=== PATIENT | male | born 1970 | race Hispanic/Latino ===

== ENCOUNTER 2022-01-18 12:02 | Inpatient (IN) | payer MEDICAID ==
[2022-01-18] MEDS ORDERED: SODIUM CHLORIDE 0.9% 1000 ML IV SOLN IV ONE (12:42)
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
--- NOTE | 2022-01-18 13:38 | XRay Report ---
CHEST 1 VIEW 01/18/2022 12:25 PM INDICATION / CLINICAL INFORMATION: sepsis. COMPARISON: 03/07/2013. FINDINGS: SUPPORT DEVICES: None. HEART / MEDIASTINUM: No significant abnormality. LUNGS / PLEURA: Mild opacity right base. No pneumothorax. ADDITIONAL FINDINGS: No significant additional findings. IMPRESSION: 1. Mild opacity right base worrisome for pneumonia. 2. Left lung clear. Signer Name: Houston Lopez MD Signed: 01/18/2022 1:33 PM Workstation Name: [id number]
[2022-01-18] MEDS ORDERED: VANCOMYCIN 1,250 MG in SODIUM CHLORIDE 0.9% 500 ML 500 ML IV ONE (13:43)
[2022-01-18] MEDS ORDERED: CEFEPIME/NS 1 GM/100 ML 1 GM/100 ML BAG IV ONE (13:43)
[2022-01-18 13:54] LABS: Alanine Aminotransferase 30 units/L (7-56); Albumin 3.6 g/dL (3.9-5); BUN/Creatinine Ratio 16; Blood Urea Nitrogen 21 mg/dL (9-20); Calcium 9.1 mg/dL (8.4-10.2); Hemolysis Index 124
[2022-01-18 13:55] LABS: Basophils % (Auto) 0.8 % (0.0-1.8); Eosinophils # (Auto) 0.1 K/mm3 (0.0-0.4); Eosinophils % (Auto) 2.4 % (0.0-4.3); Hematocrit 33.7 % (35.5-45.6); Hemoglobin 10.4 gm/dl (11.8-15.2); Lymphocytes # (Auto) 1.4 K/mm3 (1.2-5.4); Lymphocytes % (Auto) 30.8 % (13.4-35.0); Mean Corpuscular HGB Conc 31 % (32-34); Mean Corpuscular Volume 92 fl (84-94); Monocytes # (Auto) 0.2 K/mm3 (0.0-0.8); Monocytes % (Auto) 5.5 % (0.0-7.3); Platelet Count 267 K/mm3 (140-440); Red Blood Count 3.65 M/mm3 (3.65-5.03); Red Cell Distribution Width 17.9 % (13.2-15.2)
[2022-01-18] MEDS ORDERED: SODIUM CHLORIDE 0.9% 1000 ML 1,000 ML IV ONE ×2 (13:58→23:01)
[2022-01-18] MEDS ORDERED: DEXTROSE 50% IN WATER (25GM) 50 ML SYRINGE IV PRN (13:58)
[2022-01-18] MEDS ORDERED: INSULIN REGULAR, HUMAN 100 UNITS/1 ML IV ONE (13:58)
[2022-01-18 14:05] LABS: Chol/HDL Ratio 5.72 %; HDL Cholesterol 37 mg/dL (40-59); LDL Cholesterol,Direct TNR mg/dL (50-130)
[2022-01-18 14:07] LABS: INR 0.92 (0.87-1.13)
[2022-01-18 14:08] LABS: Partial Thromboplastin Time 27.5 Sec. (24.2-36.6)
[2022-01-18] MEDS ORDERED: D5W/0.45% NACL/KCL 20 MEQ 20 MEQ/1,000 ML BAG IV SCH ×2 (15:00→17:00)
[2022-01-18] MEDS ORDERED: INSULIN REGULAR, HUMAN 100 UNITS in SODIUM CHLORIDE 0.9% 99 ML IV SCH (15:00)
--- NOTE | 2022-01-18 16:14 | History and Physical Report ---
History of Present Illness Date of examination: 01/18/22 Date of admission: January 18, 2022 Chief complaint: Severe weakness since a.m. History of present illness: 51-year-old male who looks older than his age complains of generalized weakness and nausea. Also neck pain and chronic back pain. Patient was in physical therapy and because he felt very weak called the EMS. In the emergency room patient was hypotensive and hypothermic. Blood glucose levels were very high. Work-up for sepsis was initiated. Patient with altered sensorium. Unable to give much history. ED course warming blankets was given and IV fluid was IV insulin was started past medical history diabetes Chronic Bactrim Neck pain past surgical history unavailable social history unavailable family history unavailable Review of Systems ROS: Stated complaint: HYPERGLYCEMIA Other details as noted in HPI Constitutional: malaise, weakness. denies: fever Eyes: denies: eye discharge ENT: denies: epistaxis Respiratory: shortness of breath Cardiovascular: denies: syncope Gastrointestinal: abdominal pain, melena Genitourinary: denies: dysuria Musculoskeletal: arthralgia, myalgia Neurological: weakness Hematological/Lymphatic: denies: easy bleeding Medications and Allergies Allergies Allergy/AdvReac Type Severity Reaction Status Date / Time No Known Allergies Allergy Verified 01/18/22 13:40 Active Meds: Active Medications Dextrose (Dextrose 50% In Water (25gm) 50 Ml Syringe) 0 ml IV Q30MIN PRN; Protocol PRN Reason: Hypoglycemia Insulin Human Regular 100 (units/ Sodium Chloride) 100 mls @ 1 mls/hr IV TITR CHAU; Protocol Last Admin: 01/18/22 15:00 Dose: 8 units/hr, 8 mls/hr Potassium Chloride/Dextrose/Sod Cl (D5w/0.45% Nacl/Kcl 20 Meq) 20 meq in 1,000 mls @ 125 mls/hr IV DIRECT CHAU Sodium Chloride (Sodium Chloride 0.9% 10 Ml Flush Syringe) 10 ml IV PRN [facility] Exam - Constitutional Vitals: Temp Pulse Resp BP Pulse Ox 98.0 F 80 18 110/65 99 01/18/22 15:36 01/18/22 16:00 01/18/22 16:00 01/18/22 16:00 01/18/22 16:00 General appearance: Present: no acute distress, well-nourished - EENT Eyes: Present: PERRL ENT: hearing intact, clear oral mucosa - Neck Neck: Present: supple, normal ROM - Respiratory Respiratory effort: normal Respiratory: bilateral: CTA - Cardiovascular Heart rate: 78 Rhythm: regular Heart Sounds: Present: S1 & S2. Absent: rub, click - Extremities Extremities: pulses symmetrical, No edema Peripheral Pulses: within normal limits - Abdominal General gastrointestinal: Present: soft, non-tender, non-distended, normal bowel sounds Male genitourinary: Present: normal - Integumentary Integumentary: Present: clear, warm, dry - Musculoskeletal Musculoskeletal: generalized weakness - Psychiatric Psychiatric: other (Altered sensorium) - Neurologic Neurologic: moves all extremities, other (Altered sensorium) - Allied Health Allied health notes reviewed: nursing, social work, case management HEART Score - HEART Score History: Slightly suspicious Age: 45-65 Risk factors: 1-2 risk factors Troponin: Troponin T 0.038 ng/mL (0.00-0.029) H 01/18/22 13:08 Troponin: < normal limit - Critical Actions Critical Actions: 0-3 pts:0.9-1.7%risk of adverse cardiac event.Candidate for discharge Results - Labs CBC & Chem 7: 01/19/22 02:24 01/19/22 02:24 Labs: Laboratory Last Values WBC 4.5 K/mm3 (4.5-11.0) 01/18/22 13:08 RBC 3.65 M/mm3 (3.65-5.03) 01/18/22 13:08 Hgb 10.4 gm/dl (11.8-15.2) L 01/18/22 13:08 Hct 33.7 % (35.5-45.6) L 01/18/22 13:08 MCV 92 fl (84-94) 01/18/22 13:08 MCH 28 pg (28-32) 01/18/22 13:08 MCHC 31 % (32-34) L 01/18/22 13:08 RDW 17.9 % (13.2-15.2) H 01/18/22 13:08 Plt Count 267 K/mm3 (140-440) 01/18/22 13:08 Lymph % (Auto) 30.8 % (13.4-35.0) 01/18/22 13:08 [place] % (Auto) 5.5 % (0.0-7.3) 01/18/22 13:08 Eos % (Auto) 2.4 % (0.0-4.3) 01/18/22 13:08 Baso % (Auto) 0.8 % (0.0-1.8) 01/18/22 13:08 Lymph # (Auto) 1.4 K/mm3 (1.2-5.4) 01/18/22 13:08 [place] # (Auto) 0.2 K/mm3 (0.0-0.8) 01/18/22 13:08 Eos # (Auto) 0.1 K/mm3 (0.0-0.4) 01/18/22 13:08 Baso # (Auto) 0.0 K/mm3 (0.0-0.1) 01/18/22 13:08 Seg Neutrophils % 60.5 % (40.0-70.0) 01/18/22 13:08 Seg Neutrophils # 2.7 K/mm3 (1.8-7.7) 01/18/22 13:08 PT 13.4 Sec. (12.2-14.9) 01/18/22 13:08 INR 0.92 (0.87-1.13) 01/18/22 13:08 APTT 27.5 Sec. (24.2-36.6) 01/18/22 13:08 VBG pH 7.180 (7.320-7.420) L* 01/18/22 13:08 Sodium 123 mmol/L (137-145) L 01/18/22 13:08 Potassium 6.8 mmol/L (3.6-5.0) H* 01/18/22 13:08 Chloride 84.5 mmol/L (98-107) L 01/18/22 13:08 Carbon Dioxide 10 mmol/L (22-30) L 01/18/22 13:08 Anion Gap 35 mmol/L 01/18/22 13:08 BUN 21 mg/dL (9-20) H 01/18/22 13:08 Creatinine 1.3 mg/dL (0.8-1.3) 01/18/22 13:08 Estimated GFR 58 ml/min 01/18/22 13:08 BUN/Creatinine Ratio 16 % 01/18/22 13:08 Glucose 1028 mg/dL (75-100) H* 01/18/22 13:08 POC Glucose > 600 mg/dL (70-105) H 01/18/22 14:49 Lactic Acid 1.20 mmol/L (0.7-2.0) 01/18/22 15:31 Calcium 9.1 mg/dL (8.4-10.2) 01/18/22 13:08 Phosphorus 4.50 mg/dL (2.5-4.5) 01/18/22 14:31 Magnesium 2.50 mg/dL (1.7-2.3) H 01/18/22 13:08 Total Bilirubin 0.20 mg/dL (0.1-1.2) 01/18/22 13:08 AST 29 units/L (5-40) 01/18/22 13:08 ALT 30 units/L (7-56) 01/18/22 13:08 Alkaline Phosphatase 234 units/L (35-129) H 01/18/22 13:08 Total Creatine Kinase 154 units/L (55-170) 01/18/22 13:08 Troponin T 0.038 ng/mL (0.00-0.029) H 01/18/22 13:08 Total Protein 6.4 g/dL (6.3-8.2) 01/18/22 13:08 Albumin 3.6 g/dL (3.9-5) L 01/18/22 13:08 Albumin/Globulin Ratio 1.3 % 01/18/22 13:08 Triglycerides 595 mg/dL (2-149) H 01/18/22 13:08 Cholesterol 212 mg/dL (50-199) H 01/18/22 13:08 LDL Cholesterol Direct TNR 01/18/22 13:08 HDL Cholesterol 37 mg/dL (40-59) L 01/18/22 13:08 Cholesterol/HDL Ratio 5.72 % 01/18/22 13:08 TSH 2.900 mlU/mL (0.270-4.200) 01/18/22 13:08 Blood Type A POSITIVE 01/18/22 13:08 Antibody Screen Negative 01/18/22 13:08 Short CBC 01/18/22 01/19/22 Range/Units 13:08 02:24 WBC 4.5 7.2 (4.5-11.0) K/mm3 Hgb 10.4 L 8.6 L (11.8-15.2) gm/dl Hct 33.7 L 25.6 L D (35.5-45.6) % Plt Count 267 245 (140-440) K/mm3 BMP 01/18/22 01/18/22 01/18/22 13:08 16:37 18:36 Sodium 123 L 131 L D 135 L Potassium 6.8 H* 3.8 D 4.1 Chloride 84.5 L 96.2 L 101.1 Carbon Dioxide 10 L 12 L 17 L BUN 21 H 20 18 Creatinine 1.3 1.3 1.1 Glucose 1028 H* 727 H* 530 H* Calcium 9.1 8.3 L 8.6 01/18/22 01/18/22 01/19/22 22:15 23:31 00:22 Sodium 139 141 141 Potassium 3.8 3.9 3.8 Chloride 105.0 107.8 H 109.1 H Carbon Dioxide 21 L 21 L 20 L BUN 17 16 16 Creatinine 1.2 1.1 1.1 Glucose 275 H 180 H 137 H Calcium 8.3 L 8.3 L 8.0 L 01/19/22 02:24 Sodium 142 Potassium 4.0 Chloride 110.5 H Carbon Dioxide 23 BUN 16 Creatinine 1.1 Glucose 77 Calcium 8.0 L Cardiac Enzymes 01/18/22 01/18/22 Range/Units 13:08 13:08 Total Creatine Kinase 154 (55-170) units/L Troponin T 0.038 H (0.00-0.029) ng/mL Liver Function 01/18/22 01/18/22 01/18/22 Range/Units 13:08 16:37 22:15 Total Bilirubin 0.20 0.20 0.20 (0.1-1.2) mg/dL AST 29 13 13 (5-40) units/L ALT 30 23 23 (7-56) units/L Alkaline Phosphatase 234 H 190 H 211 H (35-129) units/L Albumin 3.6 L 3.0 L 3.2 L (3.9-5) g/dL 01/19/22 Range/Units 02:24 Total Bilirubin 0.20 (0.1-1.2) mg/dL AST 12 (5-40) units/L ALT 22 (7-56) units/L Alkaline Phosphatase 197 H (35-129) units/L Albumin 3.1 L (3.9-5) g/dL Microbiology: Microbiology 01/18/22 13:08 Peripheral/Venous Blood Culture - Preliminary Culture in Progress 01/18/22 13:08 Peripheral/Venous Blood Culture - Preliminary Culture in Progress 01/18/22 Unknown Stool Stool Occult Blood ([facility]) - Final - Imaging and Cardiology Imaging and Cardiology: Chest x-ray Mild opacity right base worrisome for pneumonia Assessment and Plan Assessment and plan: Critical care statement The high probability OF a clinically significant sudden or life-threatening deterioration of the cardiorespiratory system and endocrine system required my full and direct attention, intervention and postoperative management. The aggregate critical care time was 40 minutes. The time is in addition to time spent performing reported procedures but includes the followin: Data review and interpretation 2: Patient assessment and monitoring of vital signs 3: Documentation 4:: Medication orders and management Advance Directives: Yes (Full code) VTE prophylaxis?: Chemical Plan of care discussed with patient/family: Yes - Patient Problems (1) Acute metabolic encephalopathy Current Visit: Yes Status: Acute Plan to address problem: Multifactorial Patient has had blood glucose levels and right lower lobe pneumonia IV antibiotics of cefepime and vancomycin IV fluids initiated (2) DKA (diabetic ketoacidosis) Current Visit: Yes Status: Acute Qualifiers: Diabetes mellitus type: type 2 Plan to address problem: DKA protocol initiated IV fluids IV insulin Correction of electrolyte abnormalities this Paper Gluing Operator consult (3) Sepsis Current Visit: Yes Status: Acute Qualifiers: Severe sepsis shock status: with septic shock Plan to address problem: Sepsis work-up IV fluids for now Pressors if necessary IV cefepime and IV vancomycin (4) Metabolic acidosis Current Visit: Yes Status: Acute Plan to address problem: Severe anion gap of 35 IV fluids and IV insulin and IV antibiotics (5) Hyponatremia Current Visit: Yes Status: Acute Plan to address problem: Secondary to high blood glucose levels Should correct with IV insulin and IV fluids (6) Hyperkalemia Current Visit: Yes Status: Acute Plan to address problem: Should correct with IV fluids IV insulin Monitor potassium levels closely (7) IDDM (insulin dependent diabetes mellitus) Current Visit: Yes Status: Acute Plan to address problem: Lantus nightly Insulin dosages per primary team once DKA resolves (8) Hypothermia Current Visit: Yes Status: Acute Qualifiers: Encounter type: initial encounter Qualified Code(s): T68.XXXA - Hypothermia, initial encounter Plan to address problem: Warming blanket for now (9) DVT prophylaxis Current Visit: Yes Status: Acute Plan to address problem: On heparin and GI prophylaxis (10) Advance care planning Current Visit: Yes Status: Acute Plan to address problem: Could not be done because of the patient's altered mental status and family not being available
[2022-01-18] MEDS ORDERED: METOCLOPRAMIDE 10 MG/2 ML INJ IV PRN (16:15)
[2022-01-18] MEDS ORDERED: ONDANSETRON 4 MG/2 ML INJ IV PRN (16:15)
[2022-01-18] MEDS ORDERED: ACETAMINOPHEN 325 MG TAB PO PRN (16:15)
[2022-01-18] MEDS ORDERED: POTASSIUM CHLORIDE 10 MEQ 10 MEQ/100 ML BAG IV PRN (17:00)
[2022-01-18] MEDS ORDERED: POTASSIUM CHLORIDE 10 MEQ 10 MEQ/100 ML BAG IV SCH (17:00)
[2022-01-18] MEDS ORDERED: VANCOMYCIN PHARMACY TO DOSE IV SCH (17:00)
[2022-01-18 17:27] LABS: Calcium 8.3 mg/dL (8.4-10.2)
[2022-01-18 19:13] LABS: BUN/Creatinine Ratio 16; Blood Urea Nitrogen 18 mg/dL (9-20); Calcium 8.6 mg/dL (8.4-10.2); Hemolysis Index 1
[2022-01-18 22:56] LABS: Alanine Aminotransferase 23 units/L (7-56); Albumin 3.2 g/dL (3.9-5); BUN/Creatinine Ratio 14; Blood Urea Nitrogen 17 mg/dL (9-20); Calcium 8.3 mg/dL (8.4-10.2); Hemolysis Index 0
[2022-01-18] MEDS: HEPARIN 5,000 UNIT/1 ML VIAL SUB-Q SCH (23:34)
[2022-01-18] MEDS: CEFEPIME/NS 2 GM/100 ML 2 GM/100 ML BAG IV SCH (23:34)
[2022-01-18 23:56] LABS: BUN/Creatinine Ratio 15; Blood Urea Nitrogen 16 mg/dL (9-20); Calcium 8.3 mg/dL (8.4-10.2); Hemolysis Index 41
[2022-01-19 01:23] LABS: BUN/Creatinine Ratio 15; Blood Urea Nitrogen 16 mg/dL (9-20); Hemolysis Index 11
[2022-01-19 03:42] LABS: Alanine Aminotransferase 22 units/L (7-56); Albumin 3.1 g/dL (3.9-5); BUN/Creatinine Ratio 15; Blood Urea Nitrogen 16 mg/dL (9-20); Hemolysis Index 5
[2022-01-19 04:11] LABS: Hematocrit 25.6 % (35.5-45.6); Hemoglobin 8.6 gm/dl (11.8-15.2); Mean Corpuscular HGB Conc 34 % (32-34); Mean Corpuscular Volume 84 fl (84-94); Platelet Count 245 K/mm3 (140-440); Red Blood Count 3.04 M/mm3 (3.65-5.03); Red Cell Distribution Width 16.7 % (13.2-15.2)
[2022-01-19] MEDS ORDERED: DEXTROSE 50% IN WATER (25GM) 50 ML SYRINGE IV PRN (08:00)
[2022-01-19] MEDS ORDERED: LACTATED RINGERS 1,000 ML IV ONE (08:08)
[2022-01-19 08:14] LABS: BUN/Creatinine Ratio 16; Blood Urea Nitrogen 16 mg/dL (9-20); Calcium 8.4 mg/dL (8.4-10.2); Hemolysis Index 25
[2022-01-19 08:43] LABS: BUN/Creatinine Ratio 18; Blood Urea Nitrogen 16 mg/dL (9-20); Calcium 8.3 mg/dL (8.4-10.2); Hemolysis Index 2
[2022-01-19] MEDS ORDERED: INSULIN GLARGINE 100 UNITS/ML SUB-Q SCH (09:00)
--- NOTE | 2022-01-19 09:45 | Electrocardiograph Report ---
[facility] Test Date: 2022-01-18 Test Time: 13:16:19 Pat Name: VIOLET FLOYD Department: Room: A253 Gender: M Sole Rougher: NEIL : 1970 Requested By: VIVIEN MABRY Order Number: [id number] Reading MD: Sumeet Saldana Measurements Intervals [place] Rate: 66 P: 57 [place]: 181 QRS: 63 QRSD: 129 T: 74 QT: 482 QTc: 507 Interpretive Statements Sinus rhythm Nonspecific intraventricular conduction delay No previous ECG available for comparison Electronically Signed On 01-19-2022 9:44:55 EDT by Sumeet Saldana
--- NOTE | 2022-01-19 10:38 | Progress Note ---
<NIIDA CALDERON - Last Filed: 01/19/22 10:36> Assessment and Plan Assessment and plan: This is a 51-year-old male with IDDM, chronic pain admitted with DKA Neuro: Acute metabolic encephalopathy (resolved) -Avoid delirium -Reorientation as needed -Maintain sleep-wake cycle -As needed analgesia Cardiac: Hypotension -Ordered additional 1 IVF bolus -Blood pressure monitoring per protocol Respiratory: NAD -Supplemental oxygen as needed -[place]ulmanory hygenie -SPO2 monitoring GI: Moderate protein calorie malnutrition -Ntr supplementation -PPI -CC diet -BR: colace : Hyperchloremic metabolic acidosis -Renally dose medications -Avoid nephrotoxic medications -Daily weights -Trend BMP ID: Sepsis (POA) -Meets criteria with hypothermia, hypotension, CXR with RLL infiltrate, -Antibiotic therapy with rocephin and azithromycin -f/u blood culture -Monitor WBC and temperature curve Endo: s/p DKA, h/o IDDM -Presented with BG 1028, AG 29, hyponatremia, hyperkalemia -Hgb A1C 12.5 -Home meds: Humalong 5 units TID, Levemir 10 units BID -s/p insuling gtt -Avoid hypoglycemia -SSI -Accu-Cheks ACHS -Long-acting insulin, titrate as needed Heme: NAD -Trend CBC -Transfuse hemoglobin less than 7 -heparin sub q -Monitor for signs of bleeding -SCDs to BLE while in bed The high probability of a clinically significant, sudden or life threatening deterioration of the [endo/CV] system(s) required my full and direct attention, intervention and personal management. The aggregate critical care time was [60] minutes. This time is in addition to time spent performing reported procedures but includes the following: [x] Data Review and interpretation [x] Patient assessment and monitoring of vital signs [x] Documentation [x] Medication orders and management Disposition Plan: transfer to floor Total Time Spent with Patient (Minutes): 60 History Interval history: This is a 51 year old male with IDDM and chronic pain who presented to the ED with complaints of generalized weakness and nausea while in physical therapy via EMS. In the emergency department patient was hypotensive, hypothermic and blood glucose was noted above 1000 with other lab work consistent with DKA. Patient was fluid resuscitated, warmed and started on IV insulin. Patient was admitted to the hospital service with consults to CCM with possible sepsis and DKA. Hospital course to date: 01/19: Per documentation patient has been off insulin drip since approximately 0200. Anion gap closed on BMP from 0224. Stat BMP obtained and anion gap noted to be in acceptable levels. Patient given 1 L IVF bolus for hypotension, t ransition to SSI and started on a CC diet. Patient downgraded from ICU to the floor. Of note patient states he takes 5 units of Humalog 3 times a day and Levemir 10 units twice daily. He has also been normothermic and no leukocytosis. Hospitalist Physical - Constitutional Vitals: Temp Pulse Resp BP Pulse Ox 97.5 F L 68 14 139/79 99 01/19/22 10:21 01/19/22 10:21 01/19/22 10:21 01/19/22 10:21 01/19/22 10:21 General appearance: Present: no acute distress, well-nourished - EENT Eyes: Present: PERRL, EOM intact ENT: hearing intact, poor dentition - Neck Neck: Present: normal ROM - Respiratory Respiratory effort: normal Respiratory: bilateral: CTA - Cardiovascular Rhythm: regular Heart Sounds: Present: S1 & S2. Absent: systolic murmur, diastolic murmur - Extremities Extremities: no ischemia, pulses intact, pulses symmetrical, No edema, normal temperature, normal color Peripheral Pulses: within normal limits - Abdominal General gastrointestinal: soft, non-tender, normal bowel sounds - Integumentary Integumentary: Present: warm, dry - Psychiatric Psychiatric: cooperative - Neurologic Neurologic: moves all extremities - Allied Health Allied health notes reviewed: nursing, RT HEART Score - HEART Score Age: 45-65 Risk factors: 1-2 risk factors Troponin: Troponin T 0.038 ng/mL (0.00-0.029) H 01/18/22 13:08 Troponin: < normal limit - Critical Actions Critical Actions: 0-3 pts:0.9-1.7%risk of adverse cardiac event.Candidate for discharge Results - Labs CBC & Chem 7: 01/19/22 02:24 01/19/22 08:13 Labs: Laboratory Last Values WBC 7.2 K/mm3 (4.5-11.0) 01/19/22 02:24 RBC 3.04 M/mm3 (3.65-5.03) L 01/19/22 02:24 Hgb 8.6 gm/dl (11.8-15.2) L 01/19/22 02:24 Hct 25.6 % (35.5-45.6) L D 01/19/22 02:24 MCV 84 fl (84-94) 01/19/22 02:24 MCH 28 pg (28-32) 01/19/22 02:24 MCHC 34 % (32-34) 01/19/22 02:24 RDW 16.7 % (13.2-15.2) H 01/19/22 02:24 Plt Count 245 K/mm3 (140-440) 01/19/22 02:24 Lymph % (Auto) Medical Equipment Technician 01/19/22 02:24 [place] % (Auto) Medical Equipment Technician 01/19/22 02:24 Eos % (Auto) Medical Equipment Technician 01/19/22 02:24 Baso % (Auto) Medical Equipment Technician 01/19/22 02:24 Lymph # (Auto) Medical Equipment Technician 01/19/22 02:24 [place] # (Auto) Medical Equipment Technician 01/19/22 02:24 Eos # (Auto) Medical Equipment Technician 01/19/22 02:24 Baso # (Auto) Medical Equipment Technician 01/19/22 02:24 Seg Neutrophils % Medical Equipment Technician 01/19/22 02:24 Seg Neutrophils # Medical Equipment Technician 01/19/22 02:24 PT 13.4 Sec. (12.2-14.9) 01/18/22 13:08 INR 0.92 (0.87-1.13) 01/18/22 13:08 APTT 27.5 Sec. (24.2-36.6) 01/18/22 13:08 VBG pH 7.180 (7.320-7.420) L* 01/18/22 13:08 Sodium 141 mmol/L (137-145) 01/19/22 08:13 Potassium 4.2 mmol/L (3.6-5.0) 01/19/22 08:13 Chloride 108.2 mmol/L (98-107) H 01/19/22 08:13 Carbon Dioxide 20 mmol/L (22-30) L 01/19/22 08:13 Anion Gap 17 mmol/L 01/19/22 08:13 BUN 16 mg/dL (9-20) 01/19/22 08:13 Creatinine 0.9 mg/dL (0.8-1.3) 01/19/22 08:13 Estimated GFR > 60 ml/min 01/19/22 08:13 BUN/Creatinine Ratio 18 % 01/19/22 08:13 Glucose 122 mg/dL (75-100) H 01/19/22 08:13 POC Glucose 99 mg/dL (70-105) 01/19/22 06:25 Hemoglobin A1c 12.5 % (4-6) H 01/18/22 14:31 Lactic Acid 1.20 mmol/L (0.7-2.0) 01/18/22 15:31 Calcium 8.3 mg/dL (8.4-10.2) L 01/19/22 08:13 Phosphorus 2.70 mg/dL (2.5-4.5) D 01/19/22 08:25 Magnesium 2.10 mg/dL (1.7-2.3) 01/19/22 08:25 Total Bilirubin 0.20 mg/dL (0.1-1.2) 01/19/22 02:24 AST 12 units/L (5-40) 01/19/22 02:24 ALT 22 units/L (7-56) 01/19/22 02:24 Alkaline Phosphatase 197 units/L (35-129) H 01/19/22 02:24 Total Creatine Kinase 154 units/L (55-170) 01/18/22 13:08 Troponin T 0.038 ng/mL (0.00-0.029) H 01/18/22 13:08 Total Protein 5.1 g/dL (6.3-8.2) L 01/19/22 02:24 Albumin 3.1 g/dL (3.9-5) L 01/19/22 02:24 Albumin/Globulin Ratio 1.6 % 01/19/22 02:24 Triglycerides 595 mg/dL (2-149) H 01/18/22 13:08 Cholesterol 212 mg/dL (50-199) H 01/18/22 13:08 LDL Cholesterol Direct TNR 01/18/22 13:08 HDL Cholesterol 37 mg/dL (40-59) L 01/18/22 13:08 Cholesterol/HDL Ratio 5.72 % 01/18/22 13:08 TSH 2.900 mlU/mL (0.270-4.200) 01/18/22 13:08 Blood Type A POSITIVE 01/18/22 13:08 Antibody Screen Negative 01/18/22 13:08 Microbiology: Microbiology 01/18/22 13:08 Peripheral/Venous Blood Culture - Preliminary Culture in Progress 01/18/22 13:08 Peripheral/Venous Blood Culture - Preliminary Culture in Progress 01/18/22 Unknown Stool Stool Occult Blood (YVROSE) - Final Active Medications - Current Medications Current Medications: Generic Name Dose Route Start Last Admin Trade Name Freq PRN Reason Stop Dose Admin Acetaminophen 650 mg 01/18/22 16:15 Acetaminophen 325 Mg Tab PO Q4H PRN Pain MILD(1-3)/Fever >100.5/MARTIN Dextrose 50 ml 01/19/22 08:00 Dextrose 50% In Water (25gm) 50 Ml Syringe IV Q30MIN PRN Hypoglycemia Protocol Docusate Sodium 100 mg 01/19/22 22:00 Docusate Sodium 100 Mg Cap PO BID [facility] Heparin Sodium (Porcine) 5,000 unit 01/18/22 22:00 01/18/22 23:34 Heparin 5,000 Unit/1 Ml Vial SUB-Q 5,000 unit Q12HR [facility]AU Administration Hydromorphone HCl 0.5 mg 01/18/22 16:15 Hydromorphone 1 Mg/1 Ml Inj IV Q3H PRN Pain , Severe (7-10) Cefepime HCl 2 gm in 100 mls @ 200 mls/hr 01/18/22 22:00 01/18/22 23:34 Cefepime/Ns 2 Gm/100 Ml IV 200 mls/hr Q8H [facility] Administration Protocol Vancomycin HCl 1,250 mg/ 275 mls @ 137.5 mls/hr 01/19/22 12:00 Sodium Chloride IV Q24H [facility] Insulin Glargine 5 units 01/19/22 09:00 Insulin Glargine 100 Units/Ml SUB-Q QAMDIAB [facility] Insulin Human Lispro 0 unit 01/19/22 11:30 Insulin Lispro 100 Unit/Ml SUB-Q ACHS [facility] Protocol Metoclopramide HCl 10 mg 01/18/22 16:15 Metoclopramide 10 Mg/2 Ml Inj IV Q6H PRN Nausea And Vomiting Morphine Sulfate 2 mg 01/18/22 16:15 Morphine 2 Mg/1 Ml Inj IV Q4H PRN Pain, Moderate (4-6) Ondansetron HCl 4 mg 01/18/22 16:15 Ondansetron 4 Mg/2 Ml Inj IV Q8H PRN Nausea And Vomiting Sodium Chloride 10 ml 01/18/22 22:00 01/18/22 23:43 Sodium Chloride 0.9% 10 Ml Flush Syringe IV 10 ml BID [facility]AU Administration Sodium Chloride 10 ml 01/18/22 16:15 Sodium Chloride 0.9% 10 Ml Flush Syringe IV PRN PRN LINE FLUSH <CATHERINE BELTRAN - Last Filed: 01/20/22 07:00> Assessment and Plan Assessment and plan: I saw and evaluated the patient. I agree with the findings and the plan of care as documented in the Nurse Practitioner's~note, with the following corrections and additions. Hospitalist Physical - Constitutional Vitals: Temp Pulse Resp BP Pulse Ox 98.2 F 80 16 150/89 100 01/20/22 05:23 01/20/22 05:23 01/20/22 05:23 01/20/22 05:23 01/20/22 05:23 HEART Score - HEART Score Troponin: Troponin T 0.038 ng/mL (0.00-0.029) H 01/18/22 13:08 Results - Labs CBC & Chem 7: 01/20/22 04:22 01/20/22 04:22 Labs: Laboratory Last Values WBC 4.8 K/mm3 (4.5-11.0) 01/20/22 04:22 RBC 3.42 M/mm3 (3.65-5.03) L 01/20/22 04:22 Hgb 9.6 gm/dl (11.8-15.2) L 01/20/22 04:22 Hct 29.2 % (35.5-45.6) L 01/20/22 04:22 MCV 85 fl (84-94) 01/20/22 04:22 MCH 28 pg (28-32) 01/20/22 04:22 MCHC 33 % (32-34) 01/20/22 04:22 RDW 17.7 % (13.2-15.2) H 01/20/22 04:22 Plt Count 235 K/mm3 (140-440) 01/20/22 04:22 Lymph % (Auto) Medical Equipment Technician 01/19/22 02:24 [place] % (Auto) Medical Equipment Technician 01/19/22 02:24 Eos % (Auto) Medical Equipment Technician 01/19/22 02:24 Baso % (Auto) Medical Equipment Technician 01/19/22 02:24 Lymph # (Auto) Medical Equipment Technician 01/19/22 02:24 [place] # (Auto) Medical Equipment Technician 01/19/22 02:24 Eos # (Auto) Medical Equipment Technician 01/19/22 02:24 Baso # (Auto) Medical Equipment Technician 01/19/22 02:24 Seg Neutrophils % Medical Equipment Technician 01/19/22 02:24 Seg Neutrophils # Medical Equipment Technician 01/19/22 02:24 PT 13.4 Sec. (12.2-14.9) 01/18/22 13:08 INR 0.92 (0.87-1.13) 01/18/22 13:08 APTT 27.5 Sec. (24.2-36.6) 01/18/22 13:08 VBG pH 7.180 (7.320-7.420) L* 01/18/22 13:08 Sodium 132 mmol/L (137-145) L 01/20/22 04:22 Potassium 4.6 mmol/L (3.6-5.0) 01/20/22 04:22 Chloride 99.3 mmol/L (98-107) 01/20/22 04:22 Carbon Dioxide 20 mmol/L (22-30) L 01/20/22 04:22 Anion Gap 17 mmol/L 01/20/22 04:22 BUN 13 mg/dL (9-20) 01/20/22 04:22 Creatinine 0.9 mg/dL (0.8-1.3) 01/20/22 04:22 Estimated GFR > 60 ml/min 01/20/22 04:22 BUN/Creatinine Ratio 14 % 01/20/22 04:22 Glucose 452 mg/dL (75-100) H 01/20/22 04:22 POC Glucose 343 mg/dL (70-105) H 01/19/22 21:12 Hemoglobin A1c 12.5 % (4-6) H 01/18/22 14:31 Lactic Acid 1.20 mmol/L (0.7-2.0) 01/18/22 15:31 Calcium 8.5 mg/dL (8.4-10.2) 01/20/22 04:22 Phosphorus 2.70 mg/dL (2.5-4.5) D 01/19/22 08:25 Magnesium 2.10 mg/dL (1.7-2.3) 01/19/22 08:25 Total Bilirubin 0.20 mg/dL (0.1-1.2) 01/19/22 02:24 AST 12 units/L (5-40) 01/19/22 02:24 ALT 22 units/L (7-56) 01/19/22 02:24 Alkaline Phosphatase 197 units/L (35-129) H 01/19/22 02:24 Total Creatine Kinase 154 units/L (55-170) 01/18/22 13:08 Troponin T 0.038 ng/mL (0.00-0.029) H 01/18/22 13:08 Total Protein 5.1 g/dL (6.3-8.2) L 01/19/22 02:24 Albumin 3.1 g/dL (3.9-5) L 01/19/22 02:24 Albumin/Globulin Ratio 1.6 % 01/19/22 02:24 Triglycerides 595 mg/dL (2-149) H 01/18/22 13:08 Cholesterol 212 mg/dL (50-199) H 01/18/22 13:08 LDL Cholesterol Direct TNR 01/18/22 13:08 HDL Cholesterol 37 mg/dL (40-59) L 01/18/22 13:08 Cholesterol/HDL Ratio 5.72 % 01/18/22 13:08 TSH 2.900 mlU/mL (0.270-4.200) 01/18/22 13:08 Urine Color Colorless (Yellow) 01/19/22 12:13 Urine Turbidity Clear (Clear) 01/19/22 12:13 Urine pH 6.0 (5.0-7.0) 01/19/22 12:13 Ur Specific [place] 1.021 (1.003-1.030) 01/19/22 12:13 Urine Protein <15 mg/dl mg/dL (Negative) 01/19/22 12:13 Urine Glucose (UA) >=500 mg/dL (Negative) 01/19/22 12:13 Urine Ketones Tr mg/dL (Negative) 01/19/22 12:13 Urine Blood Sm (Negative) 01/19/22 12:13 Urine Nitrite Neg (Negative) 01/19/22 12:13 Urine Bilirubin Neg (Negative) 01/19/22 12:13 Urine Urobilinogen < 2.0 mg/dL (<2.0) 01/19/22 12:13 Ur Leukocyte Esterase Neg (Negative) 01/19/22 12:13 Urine WBC (Auto) 1.0 /HPF (0.0-6.0) 01/19/22 12:13 Urine RBC (Auto) 5.0 /HPF (0.0-6.0) 01/19/22 12:13 U Epithel Cells (Auto) < 1.0 /HPF (0-13.0) 01/19/22 12:13 Urine Bacteria (Auto) 3+ /HPF (Negative) 01/19/22 12:13 Urine Mucus Few /HPF 01/19/22 12:13 Blood Type A POSITIVE 01/18/22 13:08 Antibody Screen Negative 01/18/22 13:08 Microbiology: Microbiology 01/18/22 13:08 Peripheral/Venous Blood Culture - Preliminary NO GROWTH AFTER 24 HOURS 01/18/22 13:08 Peripheral/Venous Blood Culture - Preliminary NO GROWTH AFTER 24 HOURS [place]/IV: Voiding Method Toilet Active Medications - Current Medications Current Medications: Generic Name Dose Route Start Last Admin Trade Name Freq PRN Reason Stop Dose Admin Acetaminophen 650 mg 01/18/22 16:15 Acetaminophen 325 Mg Tab PO Q4H PRN Pain MILD(1-3)/Fever >100.5/MARTIN Dextrose 50 ml 01/19/22 08:00 Dextrose 50% In Water (25gm) 50 Ml Syringe IV Q30MIN PRN Hypoglycemia Protocol Docusate Sodium 100 mg 01/19/22 22:00 01/19/22 22:55 Docusate Sodium 100 Mg Cap PO Not Given BID [facility] Heparin Sodium (Porcine) 5,000 unit 01/18/22 22:00 01/19/22 22:22 Heparin 5,000 Unit/1 Ml Vial SUB-Q 5,000 unit Q12HR [facility] Administration Hydromorphone HCl 0.5 mg 01/18/22 16:15 01/20/22 05:03 Hydromorphone 1 Mg/1 Ml Inj IV 0.5 mg Q3H PRN Administration Pain , Severe (7-10) Cefepime HCl 2 gm in 100 mls @ 200 mls/hr 01/18/22 22:00 01/20/22 05:37 Cefepime/Ns 2 Gm/100 Ml IV 200 mls/hr Q8H [facility] Administration Protocol Vancomycin HCl 1,250 mg/ 275 mls @ 137.5 mls/hr 01/19/22 12:00 01/19/22 16:15 Sodium Chloride IV 137.5 mls/hr Q24H [facility] Administration Insulin Glargine 5 units 01/19/22 09:00 01/19/22 11:58 Insulin Glargine 100 Units/Ml SUB-Q Not Given QAMDIAB [facility] Insulin Human Lispro 0 unit 01/19/22 11:30 01/19/22 22:21 Insulin Lispro 100 Unit/Ml SUB-Q 4 unit ACHS [facility] Administration Protocol Metoclopramide HCl 10 mg 01/18/22 16:15 Metoclopramide 10 Mg/2 Ml Inj IV Q6H PRN Nausea And Vomiting Morphine Sulfate 2 mg 01/18/22 16:15 Morphine 2 Mg/1 Ml Inj IV Q4H PRN Pain, Moderate (4-6) Ondansetron HCl 4 mg 01/18/22 16:15 Ondansetron 4 Mg/2 Ml Inj IV Q8H PRN Nausea And Vomiting Sodium Chloride 10 ml 01/18/22 22:00 01/19/22 22:23 Sodium Chloride 0.9% 10 Ml Flush Syringe IV 10 ml BID [facility]AU Administration Sodium Chloride 10 ml 01/18/22 16:15 Sodium Chloride 0.9% 10 Ml Flush Syringe IV PRN PRN LINE FLUSH
--- NOTE | 2022-01-19 12:09 | Consultation ---
History of Present Illness Reason for consult: COPD, pneumonia History of present illness: 51-year-old male who looks older than his age complains of generalized weakness and nausea. Also neck pain and chronic back pain. Patient was in physical therapy and because he felt very weak called the EMS. In the emergency room patient was hypotensive and hypothermic. Blood glucose levels were very high. Work-up for sepsis was initiated. Patient was found to have right lower lobe infiltrate on chest x-ray. He has been treated with IV fluids and insulin drip. With improvement in blood sugar. On admission patient was noted to have mild DKA but that seems to be resolving. Patient mental status has reverted back to normal. Patient does give history of COPD and has been on inhalers and nebulizer at home. He is an ex heavy smoker up to 2 packs/day for many many years quit 6 years ago. He does have some cough but denied any fever, chills or shortness of breath other than mild dyspnea on exertion which is chronic Past History Past Medical History: COPD Social history: smoking (Former smoker quit 6 years ago smoked 2 packs/day for many years) Family history: no significant family history Medications and Allergies Allergies Allergy/AdvReac Type Severity Reaction Status Date / Time No Known Allergies Allergy Verified 01/18/22 13:40 Active Meds: Active Medications Acetaminophen (Acetaminophen 325 Mg Tab) 650 mg PO Q4H PRN PRN Reason: Pain MILD(1-3)/Fever >100.5/MARTIN Dextrose (Dextrose 50% In Water (25gm) 50 Ml Syringe) 50 ml IV Q30MIN PRN; Protocol PRN Reason: Hypoglycemia Docusate Sodium (Docusate Sodium 100 Mg Cap) 100 mg PO BID [facility] Heparin Sodium (Porcine) (Heparin 5,000 Unit/1 Ml Vial) 5,000 unit SUB-Q Q12HR [facility] Last Admin: 01/18/22 23:34 Dose: 5,000 unit Hydromorphone HCl (Hydromorphone 1 Mg/1 Ml Inj) 0.5 mg IV Q3H PRN PRN Reason: Pain , Severe (7-10) Cefepime HCl (Cefepime/Ns 2 Gm/100 Ml) 2 gm in 100 mls @ 200 mls/hr IV Q8H [facility]; Protocol Last Admin: 01/18/22 23:34 Dose: 200 mls/hr Vancomycin HCl 1,250 mg/ (Sodium Chloride) 275 mls @ 137.5 mls/hr IV Q24H [facility] Insulin Glargine (Insulin Glargine 100 Units/Ml) 5 units SUB-Q QAMDIAB [facility] Last Admin: 01/19/22 11:58 Dose: Not Given Insulin Human Lispro (Insulin Lispro 100 Unit/Ml) 0 unit SUB-Q ACHS [facility]; Protocol Metoclopramide HCl (Metoclopramide 10 Mg/2 Ml Inj) 10 mg IV Q6H PRN PRN Reason: Nausea And Vomiting Morphine Sulfate (Morphine 2 Mg/1 Ml Inj) 2 mg IV Q4H PRN PRN Reason: Pain, Moderate (4-6) Ondansetron HCl (Ondansetron 4 Mg/2 Ml Inj) 4 mg IV Q8H PRN PRN Reason: Nausea And Vomiting Sodium Chloride (Sodium Chloride 0.9% 10 Ml Flush Syringe) 10 ml IV BID [facility] Last Admin: 01/18/22 23:43 Dose: 10 ml Sodium Chloride (Sodium Chloride 0.9% 10 Ml Flush Syringe) 10 ml IV PRN PRN PRN Reason: LINE FLUSH Review of Systems Constitutional: chronic pain Respiratory: cough, dyspnea on exertion (Patient reports no other health problem. However a review of external medication list from pharmacies shows patient has been on opioids, amiodarone, Stiolto, ProAir, albuterol nebulizer, gabapentin etc.) Physical Examination Vital signs: Vital Signs Temp Pulse Resp BP Pulse Ox 94.4 F L 115 H 18 90/53 99 01/18/22 12:27 01/18/22 12:27 01/18/22 12:27 01/18/22 12:27 01/18/22 12:27 General appearance: no acute distress, alert Eyes: non-icteric ENT: oropharynx moist, other (Edentulous) Neck: supple, no lymphadenopathy, no JVD Effort: normal Ascultation: Bilateral: diminished breath sounds Cardiovascular: regular rate and rhythm Gastrointestinal: normoactive bowel sounds, soft, non-tender Integumentary: normal Extremities: no cyanosis, no edema, pink and warm Musculoskeletal: no deformities Gait: normal gait normal mental status mood appropriate Results - Laboratory Findings CBC and BMP: 01/19/22 02:24 01/19/22 08:13 PT/INR, D-dimer PT 13.4 Sec. (12.2-14.9) 01/18/22 13:08 INR 0.92 (0.87-1.13) 01/18/22 13:08 Abnormal lab findings: Abnormal Labs 01/18/22 01/18/22 01/18/22 13:08 13:08 13:08 RBC Hgb 10.4 L Hct 33.7 L MCHC 31 L RDW 17.9 H VBG pH 7.180 L* Sodium 123 L Potassium 6.8 H* Chloride 84.5 L Carbon Dioxide 10 L BUN 21 H Glucose 1028 H* POC Glucose Hemoglobin A1c Calcium Magnesium Alkaline Phosphatase 234 H Troponin T 0.038 H Total Protein Albumin 3.6 L Triglycerides 595 H Cholesterol 212 H HDL Cholesterol 37 L 01/18/22 01/18/22 01/18/22 13:08 14:31 14:49 RBC Hgb Hct MCHC RDW VBG pH Sodium Potassium Chloride Carbon Dioxide BUN Glucose POC Glucose > 600 H Hemoglobin A1c 12.5 H Calcium Magnesium 2.50 H Alkaline Phosphatase Troponin T Total Protein Albumin Triglycerides Cholesterol HDL Cholesterol 01/18/22 01/18/22 01/18/22 16:21 16:37 18:03 RBC Hgb Hct MCHC RDW VBG pH Sodium 131 L D Potassium Chloride 96.2 L Carbon Dioxide 12 L BUN Glucose 727 H* POC Glucose > 600 H 508 H Hemoglobin A1c Calcium 8.3 L Magnesium Alkaline Phosphatase 190 H Troponin T Total Protein 5.2 L Albumin 3.0 L Triglycerides Cholesterol HDL Cholesterol 01/18/22 01/18/22 01/18/22 18:36 19:20 21:24 RBC Hgb Hct MCHC RDW VBG pH Sodium 135 L Potassium Chloride Carbon Dioxide 17 L BUN Glucose 530 H* POC Glucose 500 H 314 H Hemoglobin A1c Calcium Magnesium Alkaline Phosphatase Troponin T Total Protein Albumin Triglycerides Cholesterol HDL Cholesterol 01/18/22 01/18/22 01/18/22 22:15 22:57 23:31 RBC Hgb Hct MCHC RDW VBG pH Sodium Potassium Chloride 107.8 H Carbon Dioxide 21 L 21 L BUN Glucose 275 H 180 H POC Glucose 209 H Hemoglobin A1c Calcium 8.3 L 8.3 L Magnesium Alkaline Phosphatase 211 H Troponin T Total Protein 5.3 L Albumin 3.2 L Triglycerides Cholesterol HDL Cholesterol 01/18/22 01/19/22 01/19/22 Unknown 00:22 02:24 RBC 3.04 L Hgb 8.6 L Hct 25.6 L D MCHC RDW 16.7 H VBG pH Sodium Potassium Chloride 109.1 H Carbon Dioxide 20 L BUN Glucose 137 H POC Glucose Hemoglobin A1c Calcium 8.0 L Magnesium 2.40 H Alkaline Phosphatase Troponin T Total Protein Albumin Triglycerides Cholesterol HDL Cholesterol 01/19/22 01/19/22 01/19/22 02:24 07:35 08:13 RBC Hgb Hct MCHC RDW VBG pH Sodium Potassium Chloride 110.5 H 108.3 H 108.2 H Carbon Dioxide 20 L 20 L BUN Glucose 107 H 122 H POC Glucose Hemoglobin A1c Calcium 8.0 L 8.3 L Magnesium Alkaline Phosphatase 197 H Troponin T Total Protein 5.1 L Albumin 3.1 L Triglycerides Cholesterol HDL Cholesterol - Diagnostic Findings Chest x-ray: image reviewed (Right lower lobe infiltrate, changes of COPD) Assessment and Plan Impression: Right lower lobe pneumonia, community-acquired. Sepsis Diabetic ketoacidosis, improving Dehydration/hypotension. COPD Chronic pain on opioids. Recommendations: Continue with inhaled bronchodilators Continue with Rocephin, consider adding Zithromax. No need for vancomycin unless cultures show otherwise. Monitor closely, patient may not have provided adequate history. Concerned about use of amiodarone as outpatient even though patient has denied any heart problem Will follow Thank you
[2022-01-19] MEDS: CEFEPIME/NS 2 GM/100 ML 2 GM/100 ML BAG IV SCH ×3 (13:00→22:15)
[2022-01-19] MEDS: HEPARIN 5,000 UNIT/1 ML VIAL SUB-Q SCH ×2 (13:01→22:22)
[2022-01-19] MEDS: INSULIN LISPRO 100 UNIT/ML SUB-Q SCH ×3 (13:02→22:21)
[2022-01-19] MEDS: VANCOMYCIN 1,250 MG in SODIUM CHLORIDE 0.9% 250ML 250 ML IV SCH (16:15)
[2022-01-19] MEDS: DOCUSATE SODIUM 100 MG CAP PO SCH ×2 (22:16→22:55)
[2022-01-19] MEDS: HYDROmorphone 1 MG/1 ML INJ IV PRN (22:40)
[2022-01-19 23:35] LABS: BUN/Creatinine Ratio 16; Blood Urea Nitrogen 14 mg/dL (9-20); Hemolysis Index 2
[2022-01-20 04:42] LABS: Bacteria,Urine 3+ /HPF (Negative); Bilirubin,Urine NEG (Negative); Blood,Urine SM (Negative); Color,Urine Colorless (Yellow); Mucus,Urine FEW /HPF; Protein,Urine <15 mg/dL mg/dL (Negative); Urobilinogen,Urine < 2.0 mg/dL (<2.0)
[2022-01-20] MEDS: HYDROmorphone 1 MG/1 ML INJ IV PRN ×2 (05:03→20:42)
[2022-01-20 05:16] LABS: Hematocrit 29.2 % (35.5-45.6); Hemoglobin 9.6 gm/dl (11.8-15.2); Mean Corpuscular HGB Conc 33 % (32-34); Mean Corpuscular Volume 85 fl (84-94); Platelet Count 235 K/mm3 (140-440); Red Blood Count 3.42 M/mm3 (3.65-5.03); Red Cell Distribution Width 17.7 % (13.2-15.2)
[2022-01-20 05:24] LABS: BUN/Creatinine Ratio 14; Blood Urea Nitrogen 13 mg/dL (9-20); Calcium 8.5 mg/dL (8.4-10.2); Hemolysis Index 3
[2022-01-20] MEDS: CEFEPIME/NS 2 GM/100 ML 2 GM/100 ML BAG IV SCH ×3 (05:37→21:40)
[2022-01-20] MEDS ORDERED: INSULIN LISPRO 100 UNIT/ML SUB-Q SCH (08:00)
[2022-01-20] MEDS ORDERED: INSULIN REGULAR, HUMAN 100 UNITS/1 ML SUB-Q ONE (08:00)
[2022-01-20] MEDS: INSULIN LISPRO 100 UNIT/ML SUB-Q SCH ×4 (08:16→22:05)
[2022-01-20] MEDS: DOCUSATE SODIUM 100 MG CAP PO SCH ×2 (09:24→21:42)
[2022-01-20] MEDS: HEPARIN 5,000 UNIT/1 ML VIAL SUB-Q SCH ×2 (09:25→21:40)
[2022-01-20] MEDS: INSULIN GLARGINE 100 UNITS/ML SUB-Q SCH ×2 (09:53→22:08)
[2022-01-20] MEDS: MORPHINE 2 MG/1 ML INJ IV PRN ×2 (09:58→15:29)
[2022-01-20] MEDS ORDERED: INSULIN GLARGINE 100 UNITS/ML SUB-Q SCH (10:00)
--- NOTE | 2022-01-20 11:05 | Progress Note ---
Assessment and Plan Impression: Right lower lobe pneumonia, community-acquired. Sepsis Diabetic ketoacidosis, improving Dehydration/hypotension. COPD Chronic pain on opioids. Recommendations: Continue with inhaled bronchodilators Continue with Rocephin, consider adding Zithromax. No need for vancomycin unless cultures show otherwise. Monitor closely, patient may not have provided adequate history. Concerned about use of amiodarone as outpatient even though patient has denied any heart problem Will obtain follow-up chest x-ray in the morning regarding right lower lobe pneumonia Will follow Thank you Subjective Date of service: 01/20/22 Interval history: Patient feeling better minimal cough no significant shortness of breath. Objective Vital Signs - 12hr 01/20/22 01/20/22 01/20/22 00:06 05:23 09:58 Temperature 98.2 F Pulse Rate 80 Respiratory 20 16 18 Rate Blood Pressure 150/89 O2 Sat by Pulse 97 100 Oximetry Constitutional: no acute distress, alert Eyes: non-icteric ENT: oropharynx moist, other (Edentulous) Neck: supple, no lymphadenopathy, no JVD Effort: normal Ascultation: Bilateral: diminished breath sounds Cardiovascular: regular rate and rhythm Gastrointestinal: normoactive bowel sounds, soft, non-tender Integumentary: normal Extremities: no cyanosis, no edema, pink and warm Neurologic: normal mental status Psychiatric: mood appropriate CBC and BMP: 01/20/22 04:22 01/20/22 04:22 ABG, PT/INR, D-dimer: PT/INR, D-dimer PT 13.4 Sec. (12.2-14.9) 01/18/22 13:08 INR 0.92 (0.87-1.13) 01/18/22 13:08 Abnormal lab findings: Abnormal Labs 01/18/22 01/18/22 01/18/22 13:08 13:08 13:08 RBC Hgb 10.4 L Hct 33.7 L MCHC 31 L RDW 17.9 H VBG pH 7.180 L* Sodium 123 L Potassium 6.8 H* Chloride 84.5 L Carbon Dioxide 10 L BUN 21 H Glucose 1028 H* POC Glucose Hemoglobin A1c Calcium Magnesium Alkaline Phosphatase 234 H Troponin T 0.038 H Total Protein Albumin 3.6 L Triglycerides 595 H Cholesterol 212 H HDL Cholesterol 37 L 01/18/22 01/18/22 01/18/22 13:08 14:31 14:49 RBC Hgb Hct MCHC RDW VBG pH Sodium Potassium Chloride Carbon Dioxide BUN Glucose POC Glucose > 600 H Hemoglobin A1c 12.5 H Calcium Magnesium 2.50 H Alkaline Phosphatase Troponin T Total Protein Albumin Triglycerides Cholesterol HDL Cholesterol 01/18/22 01/18/22 01/18/22 16:21 16:37 18:03 RBC Hgb Hct MCHC RDW VBG pH Sodium 131 L D Potassium Chloride 96.2 L Carbon Dioxide 12 L BUN Glucose 727 H* POC Glucose > 600 H 508 H Hemoglobin A1c Calcium 8.3 L Magnesium Alkaline Phosphatase 190 H Troponin T Total Protein 5.2 L Albumin 3.0 L Triglycerides Cholesterol HDL Cholesterol 01/18/22 01/18/22 01/18/22 18:36 19:20 21:24 RBC Hgb Hct MCHC RDW VBG pH Sodium 135 L Potassium Chloride Carbon Dioxide 17 L BUN Glucose 530 H* POC Glucose 500 H 314 H Hemoglobin A1c Calcium Magnesium Alkaline Phosphatase Troponin T Total Protein Albumin Triglycerides Cholesterol HDL Cholesterol 01/18/22 01/18/22 01/18/22 22:15 22:57 23:31 RBC Hgb Hct MCHC RDW VBG pH Sodium Potassium Chloride 107.8 H Carbon Dioxide 21 L 21 L BUN Glucose 275 H 180 H POC Glucose 209 H Hemoglobin A1c Calcium 8.3 L 8.3 L Magnesium Alkaline Phosphatase 211 H Troponin T Total Protein 5.3 L Albumin 3.2 L Triglycerides Cholesterol HDL Cholesterol 01/18/22 01/19/22 01/19/22 Unknown 00:22 02:24 RBC 3.04 L Hgb 8.6 L Hct 25.6 L D MCHC RDW 16.7 H VBG pH Sodium Potassium Chloride 109.1 H Carbon Dioxide 20 L BUN Glucose 137 H POC Glucose Hemoglobin A1c Calcium 8.0 L Magnesium 2.40 H Alkaline Phosphatase Troponin T Total Protein Albumin Triglycerides Cholesterol HDL Cholesterol 01/19/22 01/19/22 01/19/22 02:24 07:35 08:13 RBC Hgb Hct MCHC RDW VBG pH Sodium Potassium Chloride 110.5 H 108.3 H 108.2 H Carbon Dioxide 20 L 20 L BUN Glucose 107 H 122 H POC Glucose Hemoglobin A1c Calcium 8.0 L 8.3 L Magnesium Alkaline Phosphatase 197 H Troponin T Total Protein 5.1 L Albumin 3.1 L Triglycerides Cholesterol HDL Cholesterol 01/19/22 01/19/2201/19/22 09:23 11:33 16:35 RBC Hgb Hct MCHC RDW VBG pH Sodium Potassium Chloride Carbon Dioxide BUN Glucose POC Glucose 142 H 231 H 352 H Hemoglobin A1c Calcium Magnesium Alkaline Phosphatase Troponin T Total Protein Albumin Triglycerides Cholesterol HDL Cholesterol 01/19/22 01/19/22 01/20/22 21:12 23:01 04:22 RBC 3.42 L Hgb 9.6 L Hct 29.2 L MCHC RDW 17.7 H VBG pH Sodium 134 L Potassium Chloride Carbon Dioxide 18 L BUN Glucose 417 H POC Glucose 343 H Hemoglobin A1c Calcium 8.0 L Magnesium Alkaline Phosphatase Troponin T Total Protein Albumin Triglycerides Cholesterol HDL Cholesterol 01/20/22 04:22 RBC Hgb Hct MCHC RDW VBG pH Sodium 132 L Potassium Chloride Carbon Dioxide 20 L BUN Glucose 452 H POC Glucose Hemoglobin A1c Calcium Magnesium Alkaline Phosphatase Troponin T Total Protein Albumin Triglycerides Cholesterol HDL Cholesterol
[2022-01-20] MEDS: VANCOMYCIN 1,250 MG in SODIUM CHLORIDE 0.9% 250ML 250 ML IV SCH (12:19)
--- NOTE | 2022-01-20 12:41 | Discharge Summary ---
Providers - Providers Date of Admission: 01/18/22 16:15 Attending physician: CATHERINE BELTRAN MD 01/18/22 13:49 Consult to Physician [CONS] Urgent Comment: Consulting Provider: KELBY JUAREZ Physician Instructions: Reason For Exam: sepsis dka hypothermia 01/18/22 16:18 Consult to Dietitian/Nutrition [CONS] Routine Physician Instructions: Reason For Exam: DKA Reason for Consult: Nutrition Recommendations Reason for Consult: Diet education Primary care physician: BR[employer]GE IN[employer]CTOR Hospitalization Reason for admission: DKA Condition: Stable Hospital course: This is a 51 year old male with IDDM and chronic pain who presented to the ED with complaints of generalized weakness and nausea while in physical therapy via EMS. In the emergency department patient was hypotensive, hypothermic and blood glucose was noted above 1000 with other lab work consistent with DKA. Patient was fluid resuscitated, warmed and started on IV insulin. Patient was admitted to the hospital service with consults to [facility] with possible sepsis and DKA. Hospital course to date: 01/19: Per documentation patient has been off insulin drip since approximately 0200. Anion gap closed on BMP from 0224. Stat BMP obtained and anion gap noted to be in acceptable levels. Patient given 1 L IVF bolus for hypotension, transition to SSI and started on a CC diet. Patient downgraded from ICU to the floor. Of note patient states he takes 5 units of Humalog 3 times a day and Levemir 10 units twice daily. He has also been normothermic and no leukocytosis. 01/20: Patient's blood sugar was elevated this morning I had extensive discussion with him it appears that he has had labile blood sugar levels. I advised him that we will going to change his Levemir to 20 units twice a day and in addition to changing to sliding scale coverage he lives alone shelter and will monitor his checks with his diet. He will ensure that if he takes his Levemir to eat since he reports that this is why bottoms out. It appears that this was probably what led to him coming into the hospital. He also did have a burn to the left thumb which is being followed at [facility]. No evidence of infection dressing is in place. Neuro: Acute metabolic encephalopathy (resolved) -Avoid delirium -Reorientation as needed -Maintain sleep-wake cycle -As needed analgesia Cardiac: Hypotension -Ordered additional 1 IVF bolus -Blood pressure monitoring per protocol Respiratory: NAD -Supplemental oxygen as needed -Pulmanory hygenie -SPO2 monitoring GI: Moderate protein calorie malnutrition -Ntr supplementation -PPI -CC diet -BR: colace : Hyperchloremic metabolic acidosis -Renally dose medications -Avoid nephrotoxic medications -Daily weights -Trend BMP ID: Sepsis (POA) -Meets criteria with hypothermia, hypotension, CXR with RLL infiltrate, -Antibiotic therapy with rocephin and azithromycin -f/u blood culture -Monitor WBC and temperature curve Endo: s/p DKA, h/o IDDM -Presented with BG 1028, AG 29, hyponatremia, hyperkalemia -Hgb A1C 12.5 -Home meds: Humalong 5 units TID, Levemir 10 units BID -s/p insuling gtt -Avoid hypoglycemia -SSI -Accu-Cheks ACHS -Long-acting insulin, titrate as needed Heme: NAD -Trend CBC -Transfuse hemoglobin less than 7 -heparin sub q -Monitor for signs of bleeding -SCDs to BLE while in bed Disposition: 01 HOME / SELF CARE / HOMELESS Final Discharge Diagnosis (Prints w/discharge instructions): DKA Time spent for discharge: 35-minute Core Measure Documentation - Palliative Care Palliative Care/ Comfort Measures: Not Applicable - Core Measures Any of the following diagnoses?: none Exam - Physical Exam Narrative exam: VITAL SIGNS: Reviewed. GENERAL: The patient appears normally developed, Vital signs as documented. HEAD: No signs of head trauma. EYES: Pupils are equal. Extraocular motions intact. EARS: Hearing grossly intact. MOUTH: Oropharynx is normal. NECK: No adenopathy, no JVD. CHEST: Chest with clear breath sounds bilaterally. No wheezes, rales, or rhonchi. CARDIAC: Regular rate and rhythm. S1 and S2, without murmurs, gallops, or rubs. VASCULAR: No Edema. Peripheral pulses normal and equal in all extremities. ABDOMEN: Soft, non tender and non distended. No rebound or guarding, and no masses palpated. Bowel Sounds normal. MUSCULOSKELETAL: Good range of motion of all major joints. Extremities without clubbing, cyanosis or edema. NEUROLOGIC EXAM: Alert and oriented x 3 No focal sensory or strength deficits. Speech normal. Follows commands. PSYCHIATRIC: Mood normal. SKIN: Wound dressing over left palm multiple tattoos detail exam as documented in skin assessment - Constitutional Vitals: Temp Pulse Resp BP Pulse Ox 98.2 F 80 18 150/89 100 01/20/22 05:23 01/20/22 05:23 01/20/22 09:58 01/20/22 05:23 01/20/22 05:23 Plan Activity: advance as tolerated, fall precautions Diet: diabetic Special Instructions: record daily weights, record daily BP diary, record blood sugar diary Follow up with: PRIMARY MD VIJAYA [Primary Care Provider] - 3-5 Days SELAM CASTRO MD [Staff Physician] - 7 Days Prescriptions: Insulin Regular, Human [HumuLIN R] 0 unit SQ AC #1 vial cephALEXin [Keflex] 500 mg PO Q12HR #10 cap Insulin Detemir [Levemir VIAL] 20 unit SQ BID #10 ml Other Discharge Orders: Glucometer (Amb) Location: None Selected Glucometer supplies[Amb] Location: None Selected
[2022-01-21] MEDS ORDERED: LOPERAMIDE 2 MG CAP PO ONE (00:37)
[2022-01-21] MEDS ORDERED: hydrALAZINE 20 MG/1 ML INJ IV ONE (02:16)
[2022-01-21] MEDS ORDERED: hydrALAZINE 20 MG/1 ML INJ IV PRN (02:21)
[2022-01-21] MEDS: HYDROmorphone 1 MG/1 ML INJ IV PRN (02:37)
[2022-01-21] MEDS: CEFEPIME/NS 2 GM/100 ML 2 GM/100 ML BAG IV SCH (05:27)
[2022-01-21] MEDS: INSULIN LISPRO 100 UNIT/ML SUB-Q SCH ×3 (08:12→17:04)
[2022-01-21] MEDS: MORPHINE 2 MG/1 ML INJ IV PRN (08:30)
--- NOTE | 2022-01-21 09:43 | XRay Report ---
CHEST 1 VIEW INDICATION: Pneumonia. COMPARISON: 3 days prior FINDINGS: Support devices: None. Heart: Normal. Lungs/Pleura: Right basilar opacities are improved but persist. No new pulmonary findings. No pleural abnormality. IMPRESSION: 1. Improving right basilar airspace disease. No new findings. Signer Name: Rio Beltre MD Signed: 01/21/2022 9:38 AM Workstation Name: [email or web address]
[2022-01-21] MEDS: DOCUSATE SODIUM 100 MG CAP PO SCH ×2 (09:47→09:49)
[2022-01-21] MEDS: HEPARIN 5,000 UNIT/1 ML VIAL SUB-Q SCH (09:47)
[2022-01-21] MEDS: INSULIN GLARGINE 100 UNITS/ML SUB-Q SCH (09:48)
[2022-01-21] MEDS ORDERED: LOPERAMIDE 2 MG CAP PO PRN (10:08)
[2022-01-21] MEDS ORDERED: hydroCHLOROthiazide 12.5 MG CAP PO SCH (11:00)
--- NOTE | 2022-01-21 11:39 | Progress Note ---
Assessment and Plan Impression: Right lower lobe pneumonia, community-acquired, improving on chest x-ray and clinically. Sepsis Diabetic ketoacidosis, improving Dehydration/hypotension. COPD Chronic pain on opioids. Edema lower extremity could be related to volume resuscitation. Venous Doppler studies are pending. Recommendations: Continue with inhaled bronchodilators Continue with Rocephin, consider adding Zithromax. No need for vancomycin unless cultures show otherwise. Monitor closely, patient may not have provided adequate history. Concerned abou t use of amiodarone as outpatient even though patient has denied any heart problem Consider echocardiogram regarding leg edema lower extremity. Will follow Thank you Subjective Date of service: 01/21/22 Interval history: Patient feeling better minimal cough no significant shortness of breath. Complain of increasing edema of the lower extremities. Venous Doppler has been performed results pending Objective Vital Signs - 12hr 01/21/22 01/21/22 01/21/22 00:00 01:56 02:33 Temperature Pulse Rate 72 89 Respiratory 18 20 Rate Blood Pressure 182/104 170/103 O2 Sat by Pulse 99 100 Oximetry 01/21/22 01/21/22 04:21 07:15 Temperature 98.0 F Pulse Rate 72 Respiratory 16 Rate Blood Pressure 86/54 O2 Sat by Pulse 99 96 Oximetry Constitutional: no acute distress, alert Eyes: non-icteric ENT: oropharynx moist, other (Edentulous) Neck: supple, no lymphadenopathy, no JVD Effort: normal Ascultation: Bilateral: diminished breath sounds Cardiovascular: regular rate and rhythm Gastrointestinal: normoactive bowel sounds, soft, non-tender Integumentary: normal Extremities: no cyanosis, pink and warm, other (2+ pitting pedal edema) Neurologic: normal mental status Psychiatric: mood appropriate CBC and BMP: 01/20/22 04:22 01/20/22 04:22 ABG, PT/INR, D-dimer: PT/INR, D-dimer PT 13.4 Sec. (12.2-14.9) 01/18/22 13:08 INR 0.92 (0.87-1.13) 01/18/22 13:08 Abnormal lab findings: Abnormal Labs 01/18/22 01/18/22 01/18/22 13:08 13:08 13:08 RBC Hgb 10.4 L Hct 33.7 L MCHC 31 L RDW 17.9 H VBG pH 7.180 L* Sodium 123 L Potassium 6.8 H* Chloride 84.5 L Carbon Dioxide 10 L BUN 21 H Glucose 1028 H* POC Glucose Hemoglobin A1c Calcium Magnesium Alkaline Phosphatase 234 H Troponin T 0.038 H Total Protein Albumin 3.6 L Triglycerides 595 H Cholesterol 212 H HDL Cholesterol 37 L 01/18/22 01/18/22 01/18/22 13:08 14:31 14:49 RBC Hgb Hct MCHC RDW VBG pH Sodium Potassium Chloride Carbon Dioxide BUN Glucose POC Glucose > 600 H Hemoglobin A1c 12.5 H Calcium Magnesium 2.50 H Alkaline Phosphatase Troponin T Total Protein Albumin Triglycerides Cholesterol HDL Cholesterol 01/18/22 01/18/22 01/18/22 16:21 16:37 18:03 RBC Hgb Hct MCHC RDW VBG pH Sodium 131 L D Potassium Chloride 96.2 L Carbon Dioxide 12 L BUN Glucose 727 H* POC Glucose > 600 H 508 H Hemoglobin A1c Calcium 8.3 L Magnesium Alkaline Phosphatase 190 H Troponin T Total Protein 5.2 L Albumin 3.0 L Triglycerides Cholesterol HDL Cholesterol 01/18/22 01/18/22 01/18/22 18:36 19:20 21:24 RBC Hgb Hct MCHC RDW VBG pH Sodium 135 L Potassium Chloride Carbon Dioxide 17 L BUN Glucose 530 H* POC Glucose 500 H 314 H Hemoglobin A1c Calcium Magnesium Alkaline Phosphatase Troponin T Total Protein Albumin Triglycerides Cholesterol HDL Cholesterol 01/18/22 01/18/22 01/18/22 22:15 22:57 23:31 RBC Hgb Hct MCHC RDW VBG pH Sodium Potassium Chloride 107.8 H Carbon Dioxide 21 L 21 L BUN Glucose 275 H 180 H POC Glucose 209 H Hemoglobin A1c Calcium 8.3 L 8.3 L Magnesium Alkaline Phosphatase 211 H Troponin T Total Protein 5.3 L Albumin 3.2 L Triglycerides Cholesterol HDL Cholesterol 01/18/22 01/19/22 01/19/22 Unknown 00:22 02:24 RBC 3.04 L Hgb 8.6 L Hct 25.6 L D MCHC RDW 16.7 H VBG pH Sodium Potassium Chloride 109.1 H Carbon Dioxide 20 L BUN Glucose 137 H POC Glucose Hemoglobin A1c Calcium 8.0 L Magnesium 2.40 H Alkaline Phosphatase Troponin T Total Protein Albumin Triglycerides Cholesterol HDL Cholesterol 01/19/22 01/19/22 01/19/22 02:24 07:35 08:13 RBC Hgb Hct MCHC RDW VBG pH Sodium Potassium Chloride 110.5 H 108.3 H 108.2 H Carbon Dioxide 20 L 20 L BUN Glucose 107 H 122 H POC Glucose Hemoglobin A1c Calcium 8.0 L 8.3 L Magnesium Alkaline Phosphatase 197 H Troponin T Total Protein 5.1 L Albumin 3.1 L Triglycerides Cholesterol HDL Cholesterol 01/19/22 01/19/22 01/19/22 09:23 11:33 16:35 RBC Hgb Hct MCHC RDW VBG pH Sodium Potassium Chloride Carbon Dioxide BUN Glucose POC Glucose 142 H 231 H 352 H Hemoglobin A1c Calcium Magnesium Alkaline Phosphatase Troponin T Total Protein Albumin Triglycerides Cholesterol HDL Cholesterol 01/19/22 01/19/22 01/20/22 21:12 23:01 04:22 RBC 3.42 L Hgb 9.6 L Hct 29.2 L MCHC RDW 17.7 H VBG pH Sodium 134 L Potassium Chloride Carbon Dioxide 18 L BUN Glucose 417 H POC Glucose 343 H Hemoglobin A1c Calcium 8.0 L Magnesium Alkaline Phosphatase Troponin T Total Protein Albumin Triglycerides Cholesterol HDL Cholesterol 01/20/22 01/20/22 01/20/22 04:22 07:24 09:21 RBC Hgb Hct MCHC RDW VBG pH Sodium 132 L Potassium Chloride Carbon Dioxide 20 L BUN Glucose 452 H POC Glucose 444 H 433 H Hemoglobin A1c Calcium Magnesium Alkaline Phosphatase Troponin T Total Protein Albumin Triglycerides Cholesterol HDL Cholesterol 01/20/22 01/20/22 01/20/22 11:35 16:40 21:20 RBC Hgb Hct MCHC RDW VBG pH Sodium Potassium Chloride Carbon Dioxide BUN Glucose POC Glucose 324 H 116 H 133 H Hemoglobin A1c Calcium Magnesium Alkaline Phosphatase Troponin T Total Protein Albumin Triglycerides Cholesterol HDL Cholesterol 01/21/22 08:06 RBC Hgb Hct MCHC RDW VBG pH Sodium Potassium Chloride Carbon Dioxide BUN Glucose POC Glucose 249 H Hemoglobin A1c Calcium Magnesium Alkaline Phosphatase Troponin T Total Protein Albumin Triglycerides Cholesterol HDL Cholesterol Chest x-ray: image reviewed (Improved right lower lobe infiltrate)
--- NOTE | 2022-01-21 13:07 | Vascular Lab Report ---
DUPLEX DOPPLER LOWER EXTREMITY VEINS, BILATERAL INDICATION / CLINICAL INFORMATION: swelling. TECHNIQUE: Duplex doppler imaging was performed through the veins of both lower extremities using michelle ous compression and other maneuvers. COMPARISON: None available. FINDINGS: RIGHT COMMON FEMORAL VEIN: Negative. RIGHT FEMORAL VEIN: Negative. RIGHT POPLITEAL VEIN: Negative. RIGHT CALF VEINS: Negative. LEFT COMMON FEMORAL VEIN: Negative. LEFT FEMORAL VEIN: Negative. LEFT POPLITEAL VEIN: Negative. LEFT CALF VEINS: Negative. ADDITIONAL FINDINGS: None. IMPRESSION: 1. No sonographic evidence for DVT in either lower extremity. Scribed by: Evelina Rodas RDMS, [place], RHODA Scribed: 01/21/2022 10:36 AM I have reviewed the images, agree with this report, and edited this report as needed. Signer Name: Enio Nickerson MD Signed: 01/21/2022 1:02 PM Workstation Name: [id number]
--- NOTE | 2022-01-21 13:10 | Discharge Summary ---
Providers - Providers Date of Admission: 01/18/22 16:15 Attending physician: CATHERINE BELTRAN MD 01/18/22 13:49 Consult to Physician [CONS] Urgent Comment: Consulting Provider: KELBY JUAREZ Physician Instructions: Reason For Exam: sepsis dka hypothermia 01/18/22 16:18 Consult to Dietitian/Nutrition [CONS] Routine Physician Instructions: Reason For Exam: DKA Reason for Consult: Nutrition Recommendations Reason for Consult: Diet education Primary care physician: COLOR MIXER Hospitalization Reason for admission: DKA Condition: Stable Hospital course: This is a 51 year old male with IDDM and chronic pain who presented to the ED with complaints of generalized weakness and nausea while in physical therapy via EMS. In the emergency department patient was hypotensive, hypothermic and blood glucose was noted above 1000 with other lab work consistent with DKA. Patient was fluid resuscitated, warmed and started on IV insulin. Patient was admitted to the hospital service with consults to [facility] with possible sepsis and DKA. Hospital course to date: 01/19: Per documentation patient has been off insulin drip since approximately 0200. Anion gap closed on BMP from 0224. Stat BMP obtained and anion gap noted to be in acceptable levels. Patient given 1 L IVF bolus for hypotension, transition to SSI and started on a CC diet. Patient downgraded from ICU to the floor. Of note patient states he takes 5 units of Humalog 3 times a day and Levemir 10 units twice daily. He has also been normothermic and no leukocytosis. 01/20: Patient's blood sugar was elevated this morning I had extensive discussion with him it appears that he has had labile blood sugar levels. I advised him that we will going to change his Levemir to 20 units twice a day and in addition to changing to sliding scale coverage he lives alone custodial and will monitor his checks with his diet. He will ensure that if he takes his Levemir to eat since he reports that this is why bottoms out. It appears that this was probably what led to him coming into the hospital. He also did have a burn to the left thumb which is being followed at [place] [facility]. No evidence of infection dressing is in place. 01/21: Patient seen and examined resting comfortably no shortness of breath. Patient has increased swelling in the lower extremity which could be secondary to the fluid boluses received also treatment of the DKA. He does not have any clinical evidence of CHF from shortness of breath perspective at this time. My plan is to discharge the patient and have him follow-up outpatient for outpatient echocardiogram for further evaluation. A Doppler of the lower extremities being done to rule out DVT. He also has been provided to the patient about care management and complications related to uncontrolled diabetes he verbalized understanding. He was not discharged yesterday due to transportation issue. Neuro: Acute metabolic encephalopathy (resolved) -Avoid delirium -Reorientation as needed -Maintain sleep-wake cycle -As needed analgesia Cardiac: Hypotension -Ordered additional 1 IVF bolus -Blood pressure monitoring per protocol Respiratory: NAD -Supplemental oxygen as needed -Pulmanory hygenie -SPO2 monitoring GI: Moderate protein calorie malnutrition -Ntr supplementation -PPI -CC diet -BR: colace : Hyperchloremic metabolic acidosis -Renally dose medications -Avoid nephrotoxic medications -Daily weights -Trend BMP ID: Sepsis (POA) -Meets criteria with hypothermia, hypotension, CXR with RLL infiltrate, -Antibiotic therapy with rocephin and azithromycin -f/u blood culture -Monitor WBC and temperature curve Endo: s/p DKA, h/o IDDM -Presented with BG 1028, AG 29, hyponatremia, hyperkalemia -Hgb A1C 12.5 -Home meds: Humalong 5 units TID, Levemir 10 units BID -s/p insuling gtt -Avoid hypoglycemia -SSI -Accu-Cheks ACHS -Long-acting insulin, titrate as needed Heme: NAD -Trend CBC -Transfuse hemoglobin less than 7 -heparin sub q -Monitor for signs of bleeding -SCDs to BLE while in bed Disposition: 01 HOME / SELF CARE / HOMELESS Final Discharge Diagnosis (Prints w/discharge instructions): DKA Time spent for discharge: 35 mins Core Measure Documentation - Palliative Care Palliative Care/ Comfort Measures: Not Applicable - Core Measures Any of the following diagnoses?: none Exam - Physical Exam Narrative exam: VITAL SIGNS: Reviewed. GENERAL: The patient appears normally developed, Vital signs as documented. HEAD: No signs of head trauma. EYES: Pupils are equal. Extraocular motions intact. EARS: Hearing grossly intact. MOUTH: Oropharynx is normal. NECK: No adenopathy, no JVD. CHEST: Chest with clear breath sounds bilaterally. No wheezes, rales, or rhonchi. CARDIAC: Regular rate and rhythm. S1 and S2, without murmurs, gallops, or rubs. VASCULAR: No Edema. Peripheral pulses normal and equal in all extremities. ABDOMEN: Soft, non tender and non distended. No rebound or guarding, and no masses palpated. Bowel Sounds normal. MUSCULOSKELETAL: Good range of motion of all major joints. Extremities without clubbing, cyanosis. Bilateral lower extremity edema. NEUROLOGIC EXAM: Alert and oriented x 3 No focal sensory or strength deficits. Speech normal. Follows commands. PSYCHIATRIC: Mood normal. SKIN: Wound dressing over left palm multiple tattoos detail exam as documented in skin assessment - Constitutional Vitals: Temp Pulse Resp BP Pulse Ox 98.0 F 72 16 86/54 96 01/21/22 04:21 01/21/22 04:21 01/21/22 04:21 01/21/22 04:21 01/21/22 07:15 Plan Activity: advance as tolerated, fall precautions Diet: low salt, diabetic Special Instructions: restrict fluid intake to (1200cc/day), record daily weights, record daily BP diary, record blood sugar diary Follow up with: SELAM CASTRO MD [Staff Physician] - 7 Days PRIMARY CARE, [Primary Care Provider] - 3-5 Days GEORGINA CARPENTER MD [Staff Physician] - 7 Days Prescriptions: hydroCHLOROthiazide [HCTZ] 12.5 mg PO QDAY #30 capsule Insulin Regular, Human [HumuLIN R] 0 unit SQ AC #1 vial Loperamide [Imodium] 2 mg PO Q2H PRN #30 capsule PRN Reason: Diarrhea cephALEXin [Keflex] 500 mg PO Q12HR #10 cap Insulin Glargine [Lantus VIAL] 25 units SUB-Q BID #10 ml lisinopriL [Lisinopril] 20 mg PO DAILY #30 tab Other Discharge Orders: Glucometer (Amb) Location: None Selected Glucometer supplies[Amb] Location: None Selected
[2022-01-21 19:35] VITALS: BP 133/91
[2022-01-21] MEDS ORDERED: INSULIN GLARGINE 100 UNITS/ML SUB-Q SCH (22:00)
== END 2022-01-21 20:35 | disposition home or self-care (01) | DRG 871 ==
LOC: ED 12:02 → CC1 16:15 → 3A 01-19 11:42
PROVIDERS: ADMIT Internal Medicine; ATTEND Internal Medicine
DX: A41.89 Other specified sepsis (principal); E11.10 Type 2 diabetes mellitus with ketoacidosis without coma; G93.41 Metabolic encephalopathy; J18.9 Pneumonia, unspecified organism; E44.0 Moderate protein-calorie malnutrition; Z68.21 Body mass index [BMI] 21.0-21.9, adult; E87.1 Hypo-osmolality and hyponatremia; R68.0 Hypothermia, not associated with low environmental temperature; E87.5 Hyperkalemia; J44.9 Chronic obstructive pulmonary disease, unspecified; Z87.891 Personal history of nicotine dependence; E86.0 Dehydration
CPT/HCPCS: 36415; 71045; 80048; 80053; 80061; 81001; 82140; 82270; 82550; 82805; 82962; 83036; 83735; 84100; 84443; 84484; 85025; 85027; 85610; 85730; 86850; 86900; 86901; 87040; 93005; 93970; 96365; 96366; 96368; G0378; J3480; Q9967; J0360; J0692; J1170; J1644; J1815; J2270; J3370; J7030; J7040; J7050; J7120

== ENCOUNTER 2022-02-06 18:22 | Emergency (ER) | payer MEDICAID ==
--- NOTE | 2022-02-06 20:32 | XRay Report ---
Neck soft tissue 2 views INDICATION: Neck pain IMPRESSION: No radiopaque foreign body is appreciated. Signer Name: Lenny Kelley MD Signed: 02/06/2022 8:27 PM Workstation Name: [email or web address]
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
[2022-02-07 08:59] VITALS: BP 142/85
== END 2022-02-07 09:03 | disposition home or self-care (01) ==
LOC: ED 18:22
DX: K22.70 Barrett's esophagus without dysplasia (principal); I10 Essential (primary) hypertension; E11.649 Type 2 diabetes mellitus with hypoglycemia without coma; J44.9 Chronic obstructive pulmonary disease, unspecified; I48.91 Unspecified atrial fibrillation; Z88.5 Allergy status to narcotic agent; Z88.6 Allergy status to analgesic agent
CPT/HCPCS: 70360; 99283

== ENCOUNTER 2022-03-05 10:33 | Emergency (ER) | payer MEDICAID ==
[2022-03-05 11:22] VITALS: BP 140/85
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
--- NOTE | 2022-03-05 11:59 | XRay Report ---
Right hand, 3 views HISTORY: Injury COMPARISON: None FINDINGS: There is an acute fracture involving the right fifth metacarpal neck with mild apex ulnar and dorsal angulation. Findings are superimposed upon remote fracture deformity of the right fifth metacarpal sh aft. No additional fracture. No joint malalignment. Soft tissue swelling dorsum of the hand. IMPRESSION: Acute mildly angulated fracture of the right fifth metacarpal neck. Signer Name: Chance Mackenzie MD Signed: 03/05/2022 11:49 AM Workstation Name: [id number]
[2022-03-05] MEDS ORDERED: HYDROcodone/ACETAMINOPHEN 10-325MG TAB PO ONE (15:00)
== END 2022-03-05 17:05 | disposition home or self-care (01) ==
LOC: ED 10:33
DX: S62.91XA Unspecified fracture of right hand, initial encounter for closed fracture (principal); E11.649 Type 2 diabetes mellitus with hypoglycemia without coma; I10 Essential (primary) hypertension; J44.9 Chronic obstructive pulmonary disease, unspecified; I48.91 Unspecified atrial fibrillation; Z88.5 Allergy status to narcotic agent; Z88.6 Allergy status to analgesic agent; Z88.8 Allergy status to other drugs, medicaments and biological substances; X58.XXXA Exposure to other specified factors, initial encounter; Y93.89 Activity, other specified; Y92.89 Other specified places as the place of occurrence of the external cause; Y99.8 Other external cause status
CPT/HCPCS: 99283

== ENCOUNTER 2022-03-14 07:19 | Emergency (ER) | payer MEDICAID ==
[2022-03-14] MEDS ORDERED: SODIUM CHLORIDE 0.9% 1000 ML 1,000 ML IV ONE (07:49)
[2022-03-14 08:45] LABS: Basophils % (Auto) 0.4 % (0.0-1.8); Eosinophils # (Auto) 0.2 K/mm3 (0.0-0.4); Eosinophils % (Auto) 3.3 % (0.0-4.3); Hematocrit 30.9 % (35.5-45.6); Hemoglobin 10.9 gm/dl (11.8-15.2); Lymphocytes # (Auto) 2.8 K/mm3 (1.2-5.4); Lymphocytes % (Auto) 37.8 % (13.4-35.0); Mean Corpuscular HGB Conc 35 % (32-34); Mean Corpuscular Volume 85 fl (84-94); Monocytes # (Auto) 0.4 K/mm3 (0.0-0.8); Monocytes % (Auto) 5.7 % (0.0-7.3); Platelet Count 251 K/mm3 (140-440); Red Blood Count 3.65 M/mm3 (3.65-5.03); Red Cell Distribution Width 16.9 % (13.2-15.2)
[2022-03-14 08:55] LABS: INR 3.62 (0.87-1.13)
[2022-03-14 09:10] LABS: Creatine Kinase MB 10.9 ng/mL (0.0-4.0)
[2022-03-14 09:15] LABS: Albumin 3.7 g/dL (3.9-5); Calcium 9.7 mg/dL (8.4-10.2)
--- NOTE | 2022-03-14 10:49 | Electrocardiograph Report ---
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
[2022-03-14 11:37] LABS: Bilirubin,Urine NEG (Negative); Blood,Urine NEG (Negative); Color,Urine Yellow (Yellow); Urobilinogen,Urine < 2.0 mg/dL (<2.0)
[2022-03-14 11:43] LABS: Bacteria,Urine 1+ /HPF (Negative); Hyaline Casts,Urine 8 /LPF; Mucus,Urine FEW /HPF
[2022-03-14 11:45] LABS: Amphetamine Screen,Urine Negative; Benzodiazepines Screen,Urine Negative; Cannabinoid Screen,Urine Negative; Cocaine Screen,Urine Negative; Methadone Screen,Urine Negative; Opiate Screen,Urine Negative
--- NOTE | 2022-03-14 12:01 | Emergency Department Report ---
ED Syncope HPI - General Chief Complaint: Syncope Stated Complaint: FALL/NECK PAIN Time Seen by Provider: 03/14/22 09:40 Source: patient - History of Present Illness Initial Comments: Patient is a 51-year-old male presenting to ED with complaint of syncopal spell. States he was walking out to his porch to smoke a cigarette when he became dizzy. He remembers is waking up and needing assistance getting up. He reports history of syncopal spells in the past. Denies any preceding chest pain or shortness of breath. Blood pressure in the 70s on EMS arrival. He was started on saline infusion in route. On arrival complaints of headache and neck pain from his fall. - Related Data Allergies/Adverse Reactions: Allergies ketorolac [From Toradol] Allergy (Verified 02/06/22 19:54) Rash morphine Allergy (Verified 02/06/22 19:54) Rash NSAIDS (Non-Steroidal Anti-Inflamma Allergy (Verified 01/27/22 22:16) Swelling tramadol Allergy (Verified 01/27/22 22:16) Anaphylaxis Home Medications: Ambulatory Orders Insulin Glargine [Lantus VIAL] 25 units SUB-Q BID #10 ml 01/29/22 Insulin Regular, Human [HumuLIN R] 0 unit SQ AC #1 vial 01/29/22 hydroCHLOROthiazide [HCTZ] 12.5 mg PO QDAY #30 capsule 01/29/22 lisinopriL [Lisinopril] 20 mg PO DAILY #30 tab 01/29/22 ED Review of Systems ROS: Stated complaint: FALL/NECK PAIN Other details as noted in HPI Comment: All other systems reviewed and negative Respiratory: denies: cough, shortness of breath, wheezing Cardiovascular: syncope. denies: chest pain, palpitations Gastrointestinal: denies: abdominal pain, nausea, diarrhea Musculoskeletal: denies: back pain, joint swelling, arthralgia Skin: denies: rash, lesions Neurological: denies: headache, weakness, paresthesias Psychiatric: denies: anxiety, depression ED Past Medical Hx - Past Medical History Previous Medical History?: Yes Hx Hypertension: Yes Hx Diabetes: Yes Hx COPD: Yes Additional medical history: hypogycemia, A. Fib - Surgical History Past Surgical History?: Yes - Social History Smoking Status: Never Smoker - Medications Home Medications: Home Medications Medication Instructions Recorded Confirmed Last Taken Type Insulin Glargine [Lantus VIAL] 25 units SUB-Q BID #10 ml 01/29/22 Unknown Rx Insulin Regular, Human [HumuLIN R] 0 unit SQ AC #1 vial 01/29/22 Unknown Rx hydroCHLOROthiazide [HCTZ] 12.5 mg PO QDAY #30 capsule 01/29/22 Unknown Rx lisinopriL [Lisinopril] 20 mg PO DAILY #30 tab 01/29/22 Unknown Rx ED Physical Exam - General Limitations: No Limitations General appearance: alert, in no apparent distress - Head Head exam: Present: atraumatic, normocephalic - Neck Neck exam: Present: normal inspection, tenderness - Respiratory Respiratory exam: Present: normal lung sounds bilaterally. Absent: respiratory distress - Cardiovascular Cardiovascular Exam: Present: regular rate, normal rhythm, normal heart sounds. Absent: systolic murmur, diastolic murmur, rubs, gallop - GI/Abdominal GI/Abdominal exam: Present: soft. Absent: distended, tenderness - Rectal Rectal exam: Present: deferred - Neurological Exam Neurological exam: Present: alert, oriented X3 - Psychiatric Psychiatric exam: Present: normal affect, normal mood - Skin Skin exam: Present: warm, dry, intact, normal color ED Course Vital Signs 03/14/22 03/14/22 03/14/22 07:46 08:15 08:18 Temperature 97.9 F Pulse Rate 80 80 69 Respiratory 16 18 19 Rate Blood Pressure Blood Pressure 69/35 74/45 [Left] O2 Sat by Pulse 96 99 Oximetry 03/14/22 03/14/22 03/14/22 08:30 08:38 08:46 Temperature Pulse Rate 64 87 63 Respiratory 12 18 14 Rate Blood Pressure 114/72 114/70 70/45 Blood Pressure [Left] O2 Sat by Pulse 100 99 100 Oximetry 03/14/22 03/14/22 03/14/22 09:00 09:16 09:30 Temperature Pulse Rate 65 59 L 59 L Respiratory 15 13 14 Rate Blood Pressure 154/86 136/83 143/85 Blood Pressure [Left] O2 Sat by Pulse 98 100 99 Oximetry 03/14/22 03/14/22 03/14/22 09:46 10:00 10:16 Temperature Pulse Rate 59 L 61 57 L Respiratory 13 14 13 Rate Blood Pressure 143/85 135/82 118/76 Blood Pressure [Left] O2 Sat by Pulse 99 99 99 Oximetry 03/14/22 03/14/22 03/14/22 10:30 10:46 11:00 Temperature Pulse Rate 58 L 60 62 Respiratory 13 12 12 Rate Blood Pressure 118/76 118/76 103/58 Blood Pressure [Left] O2 Sat by Pulse 99 98 97 Oximetry 03/14/22 03/14/22 03/14/22 11:16 11:30 11:46 Temperature Pulse Rate 74 64 62 Respiratory 16 14 14 Rate Blood Pressure 94/60 95/62 95/62 Blood Pressure [Left] O2 Sat by Pulse 95 100 98 Oximetry 03/14/22 03/14/22 03/14/22 12:00 12:16 12:30 Temperature Pulse Rate 72 61 70 Respiratory 18 11 L 12 Rate Blood Pressure 104/66 107/76 126/75 Blood Pressure [Left] O2 Sat by Pulse 99 100 100 Oximetry ED Medical Decision Making - Lab Data Result diagrams: 03/14/22 08:23 03/14/22 08:23 - Medical Decision Making CBC and CMP grossly unremarkable except for glucose of 299. Patient is an insulin-dependent diabetic. EKG shows sinus rhythm with ventricular rate of 73 bpm and early repolarization. Troponin within normal limits. CT head and C- spine negative for acute injury. On reassessment hypotension is resolved. Patient stable for discharge home with return precautions. Critical care attestation.: If time is entered above; I have spent that time in minutes in the direct care of this critically ill patient, excluding procedure time. ED Disposition Clinical Impression: Syncope and collapse Disposition: 01 HOME / SELF CARE / HOMELESS Is pt being admited?: No Condition: Stable Instructions: Syncope (ED), Syncope, [id number] Time of Disposition: 15:01
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
--- NOTE | 2022-03-14 14:41 | Cat Scan Report ---
CT cervical spine wo con INDICATION / CLINICAL INFORMATION: 51 years Male; Fall/injury. TECHNIQUE: Axial CT images of the cervical spine were obtained. Sagittal and coronal reformatted images were pr oduced. All CT scans at this location are performed using CT dose reduction for ALARA by means of aut omated exposure control. COMPARISON: The study is compared to previous CT of 01/27/2022. FINDINGS: POST-SURGICAL CHANGES: None. ALIGNMENT: There is mild reversal the cervical lordosis along with slight curvature the cervical spin e, convex toward the left. However, there is no significant developing spondylolisthesis. VERTEBRAE: There is persistent advanced to arthritic changes involving the left facet joint at C2-3 w hich also correlates with the prior study. Milder findings are seen on the right. There is marked dis c space narrowing at C5-6 and slightly milder at C6-7 with associated prominent cystic endplate begum es at. Slightly less a prominent findings are noted at C3-4 and C4-5. However, there is no clear CT e vidence of acute fracture of the cervical spine. INTRAVERTEBRAL DISCS: There is moderate left foraminal narrowing at C2-3. There is moderate to marked left foraminal narrowing at C3-4. The disc bulge effaces the subarachnoid space. There is a broad-based disc bulge at C4-5 which appears to slightly encroach on the ventral cord. The re is mild to moderate left foraminal narrowing. The spondylosis at C5-6 also appears to mildly encro ach on the ventral cord. There is mild left foraminal narrowing. The left-sided spondylosis at C6-7 effaces the left subarachnoid space at. There is marked right and moderate to marked left foraminal narrowing. PARASPINAL SOFT TISSUES: No prevertebral soft tissue fluid collections are identified. ADDITIONAL FINDINGS: None. IMPRESSION: 1. There are continued multilevel advanced degenerative changes involving cervical spine as detailed above. 2. There is no CT evidence of acute fracture of the cervical spine. Signer Name: Abhishek Gallagher MD Signed: 03/14/2022 2:36 PM Workstation Name: [id number]
[2022-03-14 16:13] VITALS: BP 158/90
== END 2022-03-14 16:30 | disposition home or self-care (01) ==
LOC: ED 07:19
DX: R55 Syncope and collapse (principal); I10 Essential (primary) hypertension; E11.9 Type 2 diabetes mellitus without complications; Z79.899 Other long term (current) drug therapy
CPT/HCPCS: 36415; 70450; 72125; 80053; 80307; 81001; 82140; 82550; 82553; 83735; 84484; 85025; 85610; 93005; 96360; 99284; J7030